=== PATIENT | female | born 1960 | race Caucasian/White ===

== ENCOUNTER → 2017-05-01 | Outpatient (CLI) | payer OTHER ==
[~2017-05-01] MED LIST: MTR600X PO; PEDICHW34 PO
--- NOTE | 2017-05-02 15:54 | MAMMOGRAPHY REPORT ---
BILATERAL DIGITAL SCREENING MAMMOGRAM TOMOSYNTHESIS WITH CAD: 05/01/2017 CLINICAL HISTORY: Routine screening. Patient has no complaints. TECHNIQUE: Breast tomosynthesis in addition to standard 2D mammography was performed. Current study was also evaluated with a Computer Aided Detection (CAD) system. COMPARISON: Comparison is made to exams dated: 07/03/2014 mammogram - [facility] and 12/23/2009 mammogram. BREAST COMPOSITION: The tissue of both breasts is heterogeneously dense, which may obscure small mas ses. FINDINGS: There are stable scattered and loosely grouped benign-appearing round and punctate microcal cifications in the breasts. No suspicious mass, architectural distortion or cluster of microcalcific ations is seen. IMPRESSION: ACR BI-RADS CATEGORY 1: NEGATIVE There is no mammographic evidence of malignancy. A 1 year screening mammogram is recommended. The pa tient will receive written notification of the results. Approximately 10% of breast cancers are not detected with mammography. A negative mammographic report should not delay biopsy if a clinically suggestive mass is present. Sierra Gan M.D. ay/:05/01/2017 15:12:37 Floral Designer Salesperson: Brittni RICHARDS(R)(M), [facility] letter sent: Normal 1/2 BI-RADS Code: ACR BI-RADS Category 1: Negative
== END | disposition home or self-care (01) ==
LOC: C.MAMM 13:42
PROVIDERS: ATTEND Obstetrics & Gynecology
DX: Z12.31 Encounter for screening mammogram for malignant neoplasm of breast (principal)

== ENCOUNTER 2019-08-09 08:57 | Inpatient (IN) ==
[2019-08-09] MEDS ORDERED: ONDANSETRON INJ 2 MG/ML 2 ML VIAL IV STA (09:19)
[2019-08-09] MEDS ORDERED: SODIUM CHLORIDE 0.9% 1000ML 1,000 ML IV ONE (09:19)
--- NOTE | 2019-08-09 09:37 | Emergency Department Note ---
History of Present Illness General Chief Complaint: Abdominal Pain Stated Complaint: LOW ABD PAIN Source: patient Mode of arrival: ambulatory Limitations: no limitations History of Present Illness Provider Complaint: abdominal pain Onset (ago): 3 day(s) Pain Consistency: intermittent Location: RLQ Radiation: none Migration to: no migration Severity: moderate Maximum Pain Intensity: 7 Current Pain Intensity: 7 Quality: + sharp Relieved By: + nothing Exacerbated By: + nothing Associated Symptoms: + nausea and + chills; no vomiting, no diarrhea, no fever, no constipation, no dysuria, no hematochezia, no hematuria, no anorexia, no neck pain, no back pain and no chest pain Treatments prior to arrival: none This 59-year-old female patient presents the emergency department today, ambulatory, complaining of right lower quadrant abdominal pain for the past 3 days. Patient states the pain is been progressively worsening. It is intermittent in nature and sharp when it occurs. She rates the pain 7/10 at present. Pain seems to be worse with laying or sitting, occasionally radiates into the back, but no clear exacerbating or alleviating factors. The patient does report a decreased appetite. Bowel movements have been smaller and less frequent than normal. Last bowel movement was this morning, the patient states it was "like marbles". She did take a bottle of magnesium citrate, thinking that her symptoms are associated with constipation, but this did not seem to make much of a difference. The patient denies any fever, but does report chills. She denies any vomiting. She denies any recent cough, congestion, runny nose, sore throat, chest pain, or dyspnea. Patient does report history of hysterectomy. She does believe she has one ovary, but is unclear which side. She denies any other abdominal surgeries. Home Medications Home Medications Medication Instructions Recorded Confirmed Type acetaminophen [Acetaminophen Extra 1,000 mg PO Q6H PRN 08/09/19 08/09/19 History Strength] ascorbic acid (vitamin C) 1 g PO PM 08/09/19 08/09/19 History magnesium citrate 300 ml PO DAILY PRN 08/09/19 08/09/19 History kutgsxfq-fir-hfofx acid-vit K 1 cap PO PM 08/09/19 08/09/19 History [Multi For Her 50 Plus] omega-3 fatty acids-fish oil 1 cap PO PM 08/09/19 08/09/19 History Allergies Allergy/AdvReac Type Severity Reaction Status Date / Time No Known Allergies Allergy Unverified 08/09/19 10:39 Past Med/Surg History Medical History Mild anemia No pertinent past medical history Surgical History H/O: hysterectomy Social History Feels Safe at Home: Yes Smoking Status: Never smoker Review of Systems A total of 10 systems reviewed and were otherwise negative Physical Exam Vital Signs: Vital Signs - 24 hr 08/09/19 09:05 08/09/19 09:20 08/09/19 10:55 Temperature 37.0 C Temperature Source Oral Pulse Rate 96 H Pulse Rate [Apical ] 93 H Respiratory Rate 20 20 Respiratory Effort / Characteristics Non-Labored Respiratory Depth Normal Normal Blood Pressure 118/76 Blood Pressure [Ri ght Arm] 123/71 Blood Pressure Cynthia n 90 Blood Pressure Cynthia n [Right Arm] 88 Pulse Oximetry 99 97 97 Oxygen Delivery Me thod Room Air Room Air Room Air Sepsis Recent Feve r Within 48 Hours No Sepsis Action Take n by Nursing No Action Required 08/09/19 12:35 08/09/19 14:45 08/09/19 14:54 Temperature Temperature Source Pulse Rate Pulse Rate [Apical ] 82 78 Respiratory Rate 18 18 Respiratory Effort / Characteristics Non-Labored Respiratory Depth Blood Pressure Blood Pressure [Ri ght Arm] 105/68 122/66 Blood Pressure Cynthia n Blood Pressure Cynthia n [Right Arm] 80 84 Pulse Oximetry 97 99 Oxygen Delivery Me thod Room Air Room Air Sepsis Recent Feve r Within 48 Hours Sepsis Action Take n by Nursing Physical Exam: VITALS: Vitals are noted on the nurse's note and reviewed by myself. Vital signs stable. GENERAL: This is a 59-year-old white female, in no acute distress, nondiaphoretic, well-developed well-nourished. SKIN: The skin was without rashes, erythema, edema, or bruising. There is no tenting of the skin. Capillary refill less than 2 seconds. HEAD: Normocephalic atraumatic. NECK: Supple without nuchal rigidity. No lymphadenopathy. No thyromegaly. Cervical spine is nontender. No JVD. HEART: Regular rate and rhythm without murmurs gallops or rubs. LUNGS: Clear to auscultation bilaterally without wheezes, rales or rhonchi. No retractions or accessory muscle use. ABDOMEN: Positive bowel sounds x 4. Normal tympanic percussion. Significant tenderness over McBurney's point in the right lower quadrant. There is referred tenderness on the right with palpation of the left. + Guarding. Abdomen otherwise without masses or organomegaly. Larsen sign negative. No rebound tenderness. MUSCULOSKELETAL: No muscle atrophy, erythema, or edema noted. Full range of motion without joint tenderness in all extremities. No tenderness to palpation. Normal gait. Strength 5/5 throughout. NEURO: Patient was alert and oriented to person place and time. Normal sensation to light and sharp touch. No focal neurological deficits. Course Course The patient was seen and evaluated as above. Patient offered analgesics and declined. An order was placed for continuous cardiac monitoring. The monitor shows a normal sinus rhythm at a rate of 78 bpm. IV access obtained, labs drawn. Patient medicated with IV fluids and Zofran. Labs reviewed by myself. Imaging performed and reviewed by myself and radiologist as noted. I discussed the case with my attending. I discussed the case with the general surgeon on-call, Dr. Jordan. He was in the OR, but agreed to see the patient as soon as he was finished. I discussed the findings with the patient at bedside. Patient medicated with IV Zosyn. She was again offered analgesics and declined. Please see general surgery dictation regarding ongoing management care of this patient. Administered Medications Ioversol (Optiray 320 100ml) 93 ml IV ONCE PRN PRN Reason: Interaction Checking Stop: 08/13/19 10:21 Last Admin: 08/09/19 10:22 Dose: 93 ml Documented by: [id number] Discontinued Medications Sodium Chloride (Nss 1000ml) 1,000 mls @ 999 mls/hr IV .Q1H1M ONE Stop: 08/09/19 10:19 Last Infusion: 08/09/19 10:41 Dose: 0 mls/hr Documented by: [id number] Admin: 08/09/19 09:35 Dose: 999 mls/hr Documented by: [id number] Piperacillin Sod/Tazobactam Sod (Zosyn) 4.5 gm in 120 mls @ 240 mls/hr IV NOW ONE Stop: 08/09/19 13:14 Last Infusion: 08/09/19 14:04 Dose: 0 mls/hr Documented by: [id number] Admin: 08/09/19 13:01 Dose: 240 mls/hr Documented by: [id number] Ondansetron HCl (Zofran) 4 mg IV NOW STA Stop: 08/09/19 09:20 Last Admin: 08/09/19 09:35 Dose: 4 mg Documented by: [id number] Medical Decision Making Differential Diagnosis + peptic ulcer disease, + biliary pathology, + UTI, + obstruction, + mesenteric ischemia, + aortic pathology, + infections, + inflammatory bowel disease, + renal colic, + appendicitis, + calculus of kidney, + constipation, + diverticul itis, + endometriosis, + gastroenteritis, + pancreatitis and + small bowel obstruction Home Medications Current Medication List: was personally reviewed by me Laboratory Data Attestation: I reviewed the patient's lab results. Leukocytosis of 16,000. No significant anemia or thrombocytopenia. Renal, hepatic function and electrolytes without significant abnormality. Lipase 142. Urinalysis positive for 3+ ketones, but no clear evidence of infection. Result diagrams: 08/09/19 09:38 08/09/19 09:38 Lab Results 08/09/19 08/09/19 08/09/19 Range/Units 09:15 09:38 09:38 WBC 16.50 H (4.8-10.8) K/uL RBC 3.72 L (4.2-5.4) M/uL Hgb 11.9 L (12.0-16.0) g/dL Hct 34.2 L (37-47) % MCV 91.9 (80-100) fL MCH 32.0 (25-34) pg MCHC 34.8 (32-36) g/dL RDW Std Deviation 43.9 (36.4-46.3) fL RDW Coeff of Tino 13.0 (11.5-14.5) % Plt Count 208 (130-400) K/uL MPV 10.4 (7.4-10.4) fL Immature Gran % (Auto) 0.2 % Neut % (Auto) 89.4 % Lymph % (Auto) 4.4 % [place] % (Auto) 5.7 % Eos % (Auto) 0.2 % Baso % (Auto) 0.1 % Immature Gran # (Auto) 0.04 H (0.00-0.02) K/uL Neut # (Auto) 14.76 H (1.4-6.5) K/uL Lymph # (Auto) 0.72 L (1.2-3.4) K/uL [place] # (Auto) 0.94 H (0.11-0.59) K/uL Eos # (Auto) 0.03 (0-0.5) K/uL Baso # (Auto) 0.01 (0-0.2) K/uL Sodium 134 L (136-145) mmol/L Potassium 3.9 (3.5-5.1) mmol/L Chloride 104 (98-107) mmol/L Carbon Dioxide 21 (21-32) mmol/L Anion Gap 8.0 (3-11) BUN 12 (7-18) mg/dl Creatinine 0.71 (0.6-1.2) mg/dl Est Cr Clr Drug Dosing 88.2 ml/min Est GFR ( Amer) 108.8 Est GFR (Non-Af Amer) 93.9 BUN/Creatinine Ratio 16.6 (10-20) Glucose 132 H (70-99) mg/dl Calcium 9.4 (8.5-10.1) mg/dl Total Bilirubin 0.7 (0.2-1) mg/dl AST 24 (15-37) U/L ALT 36 (12-78) U/L Alkaline Phosphatase 62 (45-117) U/L Total Protein 7.7 (6.4-8.2) gm/dl Albumin 3.6 (3.4-5.0) gm/dl Globulin 4.1 H (2.5-4.0) gm/dl Albumin/Globulin Ratio 0.9 (0.9-2) Lipase 142 (73-393) U/L Urine Color Dark Yellow Urine Appearance Clear (Clear) Urine pH 5.0 (4.5-7.5) Ur Specific [place] 1.033 H (1.000-1.030) Urine Protein Trace H (Negative) Urine Glucose (UA) Negative (Negative) Urine Ketones 3+ H (Negative) Urine Blood Trace H (Negative) Urine Nitrite Negative (Negative) Urine Bilirubin Negative (Negative) Urine Urobilinogen Negative (Negative) Ur Leukocyte Esterase Negative (Negative) Urine WBC (Auto) 1-5 (0-5) /hpf Urine RBC (Auto) 10-30 H (0-4) /hpf U Hyaline Cast (Auto) 5-10 H (0-5) /lpf U Epithel Cells (Auto) 10-20 H (0-5) /lpf Urine Bacteria (Auto) Negative (Negative) Imaging Data Radiologist's Impression: CT SCAN OF THE ABDOMEN AND PELVIS WITH IV CONTRAST CLINICAL HISTORY: Right lower quadrant abdominal pain. COMPARISON STUDY: No priors. TECHNIQUE: Following the IV administration of 93 cc of Optiray 320, CT scan of the abdomen and pelvis is performed from the lung bases to the proximal femora. Images are reviewed in the axial, sagittal, and coronal planes. IV contrast was administered without complication. Oral contrast was utilized. A dose lowering technique was utilized adhering to the principles of ALARA. CT DOSE: 440.05 mGy.cm FINDINGS: Lung bases: The heart is normal in size and without pericardial effusion. The lung bases are clear. Liver: The contrast-enhanced liver is normal in size, contour, and attenuation. There is no intrahepatic biliary ductal dilatation. The hepatic veins and portal veins are patent. Gallbladder: Unremarkable. Spleen: Normal in size and attenuation. Pancreas: Unremarkable. Adrenal glands: Unremarkable. Kidneys: The contrast enhanced kidneys are normal in size and without hydronephrosis. The kidneys enhance symmetrically. A subcentimeter cortical hypodensity in the left lower pole likely represents a cyst but is too small for definitive catheterization. A 4 mm nonobstructing calculus is seen in the left upper pole. Abdominal vasculature: The abdominal aorta is normal in course and caliber noting scattered foci of atherosclerotic calcification. Bowel: There is no bowel obstruction. Enteric contrast reaches the left colon. There is inflammatory process with phlegmonous change identified in the right lower quadrant. This is within the expected location of the appendix, and a normal appendix is not identified. Findings are highly concerning for acute perforated appendicitis. A calcified appendicolith is seen on image #287. There is mild wall thickening within the adjacent cecum and loops of small bowel, likely reactive. No organized fluid collection is clearly identified. Peritoneum: No intraperitoneal free air is identified. There is trace free fluid in the pelvis. There is a small fat-containing umbilical hernia. Lymphadenopathy: Prominent mesenteric lymph nodes are likely on a reactive basis. No pathologically enlarged lymph nodes identified in the abdomen or pelvis. Pelvic viscera: The bladder is normal as visualized. The uterus is surgically absent. No adnexal lesion is seen. Skeletal structures: No lytic or blastic lesions are seen. IMPRESSION: 1. There is an inflammatory process with phlegmonous change identified in the right lower quadrant as detailed above. Findings are highly concerning for acute perforated appendicitis. 2. No organized/drainable fluid collection is identified at this time. 3. Mild wall thickening within the adjacent cecum and small bowel loops is likely on a reactive basis, as is trace free fluid in the pelvis. 4. Left-sided nephrolithiasis. 5. Additional findings as above. ACT 112: Negative or not required by law. Electronically signed by: Valentino Early M.D. 08/09/2019 12:40 PM Blood Pressure Blood Pressure Findings: Normal blood pressure MDM Narrative This 59-year-old female patient presents the emergency department today for evaluation of right lower quadrant abdominal pain. The pain is been ongoing for the past 3 days. Pain is associated with nausea, chills, and anorexia. No vomiting or fever. Work-up here in the ED is concerning for a leukocytosis of 16,000. No evidence of urinary tract infection. CT imaging consistent with acute appendicitis, likely perforated. I did discuss the case with the general surgeon on-call. He did agree to see and evaluate the patient, but was in the OR at the time of the call. The patient was medicated with IV antibiotics while here in the emergency department. She was ultimately seen by the general surgeon, and will be taken to the OR for further management. Please see surgery dictation regarding ongoing management care of this patient. The chart was completed utilizing [employer] voice recognition software. Grammatical errors, random word insertions, pronoun errors, and incomplete sentences are an occasional consequence of this system due to software costa itations, ambient noise, and hardware issues. Any formal questions or concerns about the content, text, or information contained within the body of this dictation should be directly addressed to the provider for clarification. Impression & Plan Acute appendicitis with perforation and generalized peritonitis Discharge Plan Visit Data Chief Complaint: Abdominal Pain Stated Complaint: LOW ABD PAIN ED Provider: [facility] ED Midlevel Provider: Nuzhat Syed Discharge Problem: Acute appendicitis with perforation and generalized peritonitis Patient Disposition: Still a Patient Discharge Instructions Interventions: ED Discharge Assessment Last Done: 08/09/19 14:54 Forms Stand Alone Forms: My [employer] Prescriptions Prescriptions: No Action ascorbic acid (vitamin C) 1,000 mg Tablet 1 g PO PM RF: 0 acetaminophen [Acetaminophen Extra Strength] 500 mg Tablet 1,000 mg PO Q6H PRN (Reason: Fever Or Pain) RF: 0 magnesium citrate Solution 300 ml PO DAILY PRN (Reason: Constipation) RF: 0 omega-3 fatty acids-fish oil 360-1,200 mg Capsule 1 cap PO PM RF: 0 Multi For Her 50 Plus 400-80 mcg Capsule 1 cap PO PM RF: 0 Referrals Referrals: PCP,NO [Primary Care Provider] -
[2019-08-09 09:47] LABS: Basophils # (auto) 0.01 K/uL (0-0.2); Basophils % (auto) 0.1 %; Eosinophils # (auto) 0.03 K/uL (0-0.5); Eosinophils % (auto) 0.2 %; Hematocrit (blood only) 34.2 % (37-47); Hemoglobin 11.9 g/dL (12.0-16.0); Immature Granulocytes # (auto) 0.04 K/uL (0.00-0.02); Immature Granulocytes % (auto) 0.2 %; Lymphocytes # (auto) 0.72 K/uL (1.2-3.4); Lymphocytes % (auto) 4.4 %; Mean Corpuscular Hgb Conc 34.8 g/dL (32-36); Mean Corpuscular Volume 91.9 fL (80-100); Mean Platelet Volume 10.4 fL (7.4-10.4); Monocytes # (auto) 0.94 K/uL (0.11-0.59); Monocytes % (auto) 5.7 %; Neutrophils # (auto) 14.76 K/uL (1.4-6.5); Neutrophils % (auto) 89.4 %; Platelet Count 208 K/uL (130-400); RDW Standard Deviation 43.9 fL (36.4-46.3); Red Blood Count 3.72 M/uL (4.2-5.4)
[2019-08-09 09:47] LABS: Appearance Urine Clear (Clear); Bacteria Urine Automated Negative (Negative); Bilirubin Urine Negative (Negative); Blood Urine Trace (Negative); Color Urine Dark Yellow; Glucose Urine UA Negative (Negative); Ketones Urine 3+ (Negative); Leukocyte Esterase Urine Negative (Negative); Nitrite Urine Negative (Negative); Protein Urine Trace (Negative); Specific Gravity Urine 1.033 (1.000-1.030); Urobilinogen Urine Negative (Negative)
[2019-08-09 10:03] LABS: Albumin Level 3.6 gm/dl (3.4-5.0); BUN Creatinine Ratio 16.6 (10-20); Calcium 9.4 mg/dl (8.5-10.1); Creatinine Clr Calc Pharmacy 88.2 ml/min; Est GFR (African American) 108.8; Est GFR (Non-African American) 93.9; Potassium 3.9 mmol/L (3.5-5.1)
[2019-08-09 10:06] LABS: Albumin Globulin Ratio 0.9 (0.9-2); Bilirubin,Total 0.7 mg/dl (0.2-1); Globulin 4.1 gm/dl (2.5-4.0); Total Protein 7.7 gm/dl (6.4-8.2)
[2019-08-09] MEDS ORDERED: IOVERSOL 100ml IV PRN (10:22)
--- NOTE | 2019-08-09 12:41 | CT Scan Report ---
CT SCAN OF THE ABDOMEN AND PELVIS WITH IV CONTRAST CLINICAL HISTORY: Right lower quadrant abdominal pain. COMPARISON STUDY: No priors. TECHNIQUE: Following the IV administration of 93 cc of Optiray 320, CT scan of the abdomen and pelvi s is performed from the lung bases to the proximal femora. Images are reviewed in the axial, sagittal , and coronal planes. IV contrast was administered without complication. Oral contrast was utilized. A dose lowering technique was utilized adhering to the principles of ALARA. CT DOSE: 440.05 mGy.cm FINDINGS: Lung bases: The heart is normal in size and without pericardial effusion. The lung bases are clear. Liver: The contrast-enhanced liver is normal in size, contour, and attenuation. There is no intrahepa tic biliary ductal dilatation. The hepatic veins and portal veins are patent. Gallbladder: Unremarkable. Spleen: Normal in size and attenuation. Pancreas: Unremarkable. Adrenal glands: Unremarkable. Kidneys: The contrast enhanced kidneys are normal in size and without hydronephrosis. The kidneys enh ance symmetrically. A subcentimeter cortical hypodensity in the left lower pole likely represents a c yst but is too small for definitive catheterization. A 4 mm nonobstructing calculus is seen in the le ft upper pole. Abdominal vasculature: The abdominal aorta is normal in course and caliber noting scattered foci of a therosclerotic calcification. Bowel: There is no bowel obstruction. Enteric contrast reaches the left colon. There is inflammatory process with phlegmonous change identified in the right lower quadrant. This is within the expected l ocation of the appendix, and a normal appendix is not identified. Findings are highly concerning for acute perforated appendicitis. A calcified appendicolith is seen on image #287. There is mild wall th ickening within the adjacent cecum and loops of small bowel, likely reactive. No organized fluid lloyd ection is clearly identified. Peritoneum: No intraperitoneal free air is identified. There is trace free fluid in the pelvis. There is a small fat-containing umbilical hernia. Lymphadenopathy: Prominent mesenteric lymph nodes are likely on a reactive basis. No pathologically e nlarged lymph nodes identified in the abdomen or pelvis. Pelvic viscera: The bladder is normal as visualized. The uterus is surgically absent. No adnexal lesi on is seen. Skeletal structures: No lytic or blastic lesions are seen. IMPRESSION: 1. There is an inflammatory process with phlegmonous change identified in the right lower quadrant as detailed above. Findings are highly concerning for acute perforated appendicitis. 2. No organized/drainable fluid collection is identified at this time. 3. Mild wall thickening within the adjacent cecum and small bowel loops is likely on a reactive basis , as is trace free fluid in the pelvis. 4. Left-sided nephrolithiasis. 5. Additional findings as above. ACT 112: Negative or not required by law. Electronically signed by: Valentino Early M.D. 08/09/2019 12:40 PM
[2019-08-09] MEDS ORDERED: PIPERACILLIN/TAZOBACTAM 4.5 GM/120 ML BAG IV ONE (12:45)
--- NOTE | 2019-08-09 14:48 | Anesthesiology Consultation ---
Date of Service August 09, 2019 Assessment & Plan (1) Encounter for pre-operative examination: Chart Review Chart Review: Acceptable Risk for Surgery History Height/Weight Height: 5 ft 6 in Weight: 72.7 kg Allergies Allergy/AdvReac Type Severity Reaction Status Date / Time No Known Allergies Allergy Unverified 08/09/19 10:39 Medications Home Medications Medication Instructions Recorded Confirmed Last Taken acetaminophen [Acetaminophen Extra 1,000 mg PO Q6H PRN 08/09/19 08/09/19 08/09/19 02:00 Strength] ascorbic acid (vitamin C) 1 g PO PM 08/09/19 08/09/19 08/08/19 magnesium citrate 300 ml PO DAILY PRN 08/09/19 08/09/19 08/09/19 07:15 pnbxnscu-xrc-hevhs acid-vit K 1 cap PO PM 08/09/19 08/09/19 08/08/19 [Multi For Her 50 Plus] omega-3 fatty acids-fish oil 1 cap PO PM 08/09/19 08/09/19 08/08/19 Active Medications Generic Name Dose Route Start Last Admin Trade Name Freq PRN Reason Stop Dose Admin Ioversol 93 ml 08/09/19 10:22 08/09/19 10:22 Optiray 320 100ml IV 08/13/19 10:21 93 ml ONCE PRN Administration Interaction Checking Past Medical History Medical History (Updated 08/09/19 @ 14:48 by Arvin Meraz MD) Mild anemia No pertinent past medical history Past Surgical History Surgical History H/O: hysterectomy Social History Smoking Status: Never smoker Physical Exam Vital Signs Last Vital Signs Temp 37.0 C 08/09/19 09:05 Pulse 78 08/09/19 14:45 Resp 18 08/09/19 14:45 BP 122/66 08/09/19 14:45 Pulse Ox 99 08/09/19 14:45 Testing Laboratory Results 08/09/19 09:38 08/09/19 09:38 Urine Color Dark Yellow 08/09/19 09:15 Urine Appearance Clear (Clear) 08/09/19 09:15 Urine pH 5.0 (4.5-7.5) 08/09/19 09:15 Ur Specific [place] 1.033 (1.000-1.030) H 08/09/19 09:15 Urine Protein Trace (Negative) H 08/09/19 09:15 Urine Glucose (UA) Negative (Negative) 08/09/19 09:15 Urine Ketones 3+ (Negative) H 08/09/19 09:15 Urine Nitrite Negative (Negative) 08/09/19 09:15 Ur Leukocyte Esterase Negative (Negative) 08/09/19 09:15 Urine WBC (Auto) 1-5 /hpf (0-5) 08/09/19 09:15 Urine RBC (Auto) 10-30 /hpf (0-4) H 08/09/19 09:15 U Hyaline Cast (Auto) 5-10 /lpf (0-5) H 08/09/19 09:15 U Epithel Cells (Auto) 10-20 /lpf (0-5) H 08/09/19 09:15 Urine Bacteria (Auto) Negative (Negative) 08/09/19 09:15
[2019-08-09] MEDS ORDERED: ONDANSETRON INJ 2 MG/ML 2 ML VIAL IV PRN ×2 (14:49→17:24)
[2019-08-09] MEDS ORDERED: PROMETHAZINE HCL 6.25 MG in SODIUM CHLORIDE 0.9% 50 ML IV PRN (14:49)
[2019-08-09] MEDS ORDERED: ATROPINE SULFATE 0.1 MG/ML 10ML SYR IV PRN (14:49)
[2019-08-09] MEDS ORDERED: KETOROLAC 30 MG/ML VIAL IV PRN (14:49)
[2019-08-09] MEDS ORDERED: fentaNYL citrate 100 MCG/2 ML VIAL ONE ×3 (15:05→17:09)
[2019-08-09] MEDS ORDERED: MIDAZOLAM HCL 1 MG/ML 2ML VIAL ONE (15:05)
--- NOTE | 2019-08-09 15:30 | Surgery Consultation ---
Date of Consultation August 09, 2019 Assessment & Plan (1) Acute appendicitis with generalized peritonitis and gangrene: pt is a 59 year-old female who presents to Er with acute abdominal pain, IMP: acute appendicitis with perforation, peritonitis, Plan, I recommend to do laparoscopic appendectomy, possible open , D/W benefits, risks and alternatives of the surgery, the risks - infection, bleeding, abscess, sepsis, multiple organs failure, , pt understood, she agrees with the surgery, I answered all questions, pre-op antibiotic History of Present Illness History of Present Illness History of Present Illness General Chief Complaint: Abdominal Pain Stated Complaint: LOW ABD PAIN Source: patient Mode of arrival: ambulatory Limitations: no limitations History of Present Illness Provider Complaint: abdominal pain Onset (ago): 3 day(s) Pain Consistency: intermittent Location: RLQ Radiation: none Migration to: no migration Severity: moderate Maximum Pain Intensity: 7 Current Pain Intensity: 7 Quality: + sharp Relieved By: + nothing Exacerbated By: + nothing Associated Symptoms: + nausea and + chills; no vomiting, no diarrhea, no fever, no constipation, no dysuria, no hematochezia, no hematuria, no anorexia, no neck pain, no back pain and no chest pain Treatments prior to arrival: none This 59-year-old female patient presents the emergency department today, ambulatory, complaining of right lower quadrant abdominal pain for the past 3 days. Patient states the pain is been progressively worsening. It is intermittent in nature and sharp when it occurs. She rates the pain 7/10 at present. Pain seems to be worse with laying or sitting, occasionally radiates into the back, but no clear exacerbating or alleviating factors. The patient does report a decreased appetite. Bowel movements have been smaller and less frequent than normal. Last bowel movement was this morning, the patient states it was "like marbles". She did take a bottle of magnesium citrate, thinking that her symptoms are associated with constipation, but this did not seem to make much of a difference. The patient denies any fever, but does report chills. She denies any vomiting. She denies any recent cough, congestion, runny nose, sore throat, chest pain, or dyspnea. Patient does report history of hysterectomy. She does believe she has one ovary, but is unclear which side. She denies any other abdominal surgeries. I ( Azam Jordan MD ) got a call for consult acute appendicitis with perforation, I reviewed pt's H/P , labs, CT scan with pt. Home Medications Home Medications Medication Instructions Recorded Confirmed Type PEDIATRIC MULTIPLE VITAMIN W/ 1 tab PO DAILY #0 06/16/14 History (GUMMI BEAR MULTIVITAMIN/M) Ibuprofen 600 mg PO Q6H PRN #30 06/17/14 Rx Allergies Allergy/AdvReac Type Severity Reaction Status Date / Time No Known Allergies Allergy Unverified 06/17/14 22:54 Past Med/Surg History Medical History No pertinent past medical history Surgical History H/O: hysterectomy Social History Feels Safe at Home: Yes Smoking Status: Never smoker Review of Systems A total of 10 systems reviewed and were otherwise negative Physical Exam Vital Signs: Vital Signs - 24 hr 08/09/19 09:05 Temperature 37.0 C Temperature Source Oral Pulse Rate 96 H Respiratory Rate 20 Respiratory Effort / Characteristics Non-Labored Respiratory Depth Normal Blood Pressure 118/76 Blood Pressure Cynthia n 90 Pulse Oximetry 99 Oxygen Delivery Me thod Room Air Sepsis Recent Feve r Within 48 Hours No Sepsis Action Take n by Nursing No Action Required Allergies Allergy/AdvReac Type Severity Reaction Status Date / Time No Known Allergies Allergy Unverified 08/09/19 10:39 Home Medications Home Medications Medication Instructions Recorded Confirmed Type acetaminophen [Acetaminophen Extra 1,000 mg PO Q6H PRN 08/09/19 08/09/19 History Strength] ascorbic acid (vitamin C) 1 g PO PM 08/09/19 08/09/19 History magnesium citrate 300 ml PO DAILY PRN 08/09/19 08/09/19 History [id number] acid-vit K 1 cap PO PM 08/09/19 08/09/19 History [Multi For Her 50 Plus] omega-3 fatty acids-fish oil 1 cap PO PM 08/09/19 08/09/19 History Patient History Medical History (Updated 08/09/19 @ 15:31 by Azam Jordan MD) Mild anemia No pertinent past medical history Surgical History H/O: hysterectomy Social History Feels Safe at Home: Yes Smoking Status: Never smoker Physical Exam Constitutional: WD/WN, vitals as above well developed and well nourished Eyes: PERRL, conjunctivae normal, anicteric sclerae ENMT: external ear and nose normal, oropharynx normal Neck: trachea midline, no thyromegaly Respiratory: normal respiratory effort, lungs clear to auscultation normal respiratory effort Cardiovascular: RRR, no murmur, no edema Rate/Rhythm: regular rate and regular rhythm Gastrointestinal (Abdomen): normal bowel sounds, soft, nontender, no hepatosplenomegaly Percussion/Palpation: + abdomen tender and abdomen soft tenderness at RLQ with rebound pain, BS + Musculoskeletal: no cyanosis or clubbing, extremities motor strength 5/5 Skin: no rashes, warm and dry Neurologic: patellar DTR's 2+ bilat, sensation intact Psychiatric: Orientation: alert and oriented x 3 Results & Data Vital Signs (Past 12 Hours) Vital Signs Temp Pulse Pulse Resp BP BP Pulse Ox 08/09/19 14:45 78 18 122/66 99 08/09/19 12:35 82 18 105/68 97 08/09/19 10:55 93 H 20 123/71 97 08/09/19 09:20 97 08/09/19 09:05 37.0 C 96 H 20 118/76 99 Laboratory Results Abnormal lab results 08/09/19 08/09/19 08/09/19 Range/Units 09:15 09:38 09:38 WBC 16.50 H (4.8-10.8) K/uL RBC 3.72 L (4.2-5.4) M/uL Hgb 11.9 L (12.0-16.0) g/dL Hct 34.2 L (37-47) % Immature Gran # (Auto) 0.04 H (0.00-0.02) K/uL Neut # (Auto) 14.76 H (1.4-6.5) K/uL Lymph # (Auto) 0.72 L (1.2-3.4) K/uL [place] # (Auto) 0.94 H (0.11-0.59) K/uL Sodium 134 L (136-145) mmol/L Glucose 132 H (70-99) mg/dl Globulin 4.1 H (2.5-4.0) gm/dl Ur Specific [place] 1.033 H (1.000-1.030) Urine Protein Trace H (Negative) Urine Ketones 3+ H (Negative) Urine Blood Trace H (Negative) Urine RBC (Auto) 10-30 H (0-4) /hpf U Hyaline Cast (Auto) 5-10 H (0-5) /lpf U Epithel Cells (Auto) 10-20 H (0-5) /lpf Diagnostic Findings CT SCAN OF THE ABDOMEN AND PELVIS WITH IV CONTRAST CLINICAL HISTORY: Right lower quadrant abdominal pain. COMPARISON STUDY: No priors. TECHNIQUE: Following the IV administration of 93 cc of Optiray 320, CT scan of the abdomen and pelvis is performed from the lung bases to the proximal femora. Images are reviewed in the axial, sagittal, and coronal planes. IV contrast was administered without complication. Oral contrast was utilized. A dose lowering technique was utilized adhering to the principles of ALARA. CT DOSE: 440.05 mGy.cm FINDINGS: Lung bases: The heart is normal in size and without pericardial effusion. The lung bases are clear. Liver: The contrast-enhanced liver is normal in size, contour, and attenuation. There is no intrahepatic biliary ductal dilatation. The hepatic veins and portal veins are patent. Gallbladder: Unremarkable. Spleen: Normal in size and attenuation. Pancreas: Unremarkable. Adrenal glands: Unremarkable. Kidneys: The contrast enhanced kidneys are normal in size and without hydrone phrosis. The kidneys enhance symmetrically. A subcentimeter cortical hypodensity in the left lower pole likely represents a cyst but is too small for definitive catheterization. A 4 mm nonobstructing calculus is seen in the left upper pole. Abdominal vasculature: The abdominal aorta is normal in course and caliber noting scattered foci of atherosclerotic calcification. Bowel: There is no bowel obstruction. Enteric contrast reaches the left colon. There is inflammatory process with phlegmonous change identified in the right lower quadrant. This is within the expected location of the appendix, and a normal appendix is not identified. Findings are highly concerning for acute perforated appendicitis. A calcified appendicolith is seen on image #287. There is mild wall thickening within the adjacent cecum and loops of small bowel, likely reactive. No organized fluid collection is clearly identified. Peritoneum: No intraperitoneal free air is identified. There is trace free fluid in the pelvis. There is a small fat-containing umbilical hernia. Lymphadenopathy: Prominent mesenteric lymph nodes are likely on a reactive basis. No pathologically enlarged lymph nodes identified in the abdomen or pelvis. Pelvic viscera: The bladder is normal as visualized. The uterus is surgically absent. No adnexal lesion is seen. Skeletal structures: No lytic or blastic lesions are seen. IMPRESSION: 1. There is an inflammatory process with phlegmonous change identified in the right lower quadrant as detailed above. Findings are highly concerning for acute perforated appendicitis. 2. No organized/drainable fluid collection is identified at this time. 3. Mild wall thickening within the adjacent cecum and small bowel loops is likely on a reactive basis, as is trace free fluid in the pelvis. 4. Left-sided nephrolithiasis. 5. Additional findings as above.
[2019-08-09] MEDS ORDERED: cefOXitin 2,000 MG/60 ML BAG IV STA (15:35)
--- NOTE | 2019-08-09 15:35 | History & Physical Bridge Note ---
Date of Service August 09, 2019 History & Physical Bridge Note I have examined the patient, reviewed the History & Physical and in the interval since the performance of the History & Physical I have noted the following changes of clinical significance: no changes noted
[2019-08-09] MEDS ORDERED: LIDOCAINE HCL 1% 20 ML VIAL ONE (15:53)
[2019-08-09] MEDS ORDERED: BUPIVACAINE 0.5 % 5 MG/1 ML MPF 30ML VIAL ONE (15:53)
[2019-08-09] MEDS ORDERED: BACITRACIN OINT 15 GM TUBE ONE (15:53)
[2019-08-09] MEDS ORDERED: NEOSTIGMINE METHYLSULFATE 5 MG/5 ML SYR ONE (16:21)
[2019-08-09] MEDS ORDERED: ROCURONIUM BROMIDE 10 MG/ML 5 ML VIAL ONE (16:21)
[2019-08-09] MEDS ORDERED: GLYCOPYRROLATE 0.2 MG/ML VIAL ONE (16:21)
[2019-08-09] MEDS ORDERED: METOCLOPRAMIDE HCL INJ 5 MG/ML 2 ML VIAL ONE (16:21)
[2019-08-09] MEDS ORDERED: PROPOFOL IV EMULSION 10 MG/ML 20 ML VIAL IV ONE (16:21)
[2019-08-09] MEDS ORDERED: ONDANSETRON INJ 2 MG/ML 2 ML VIAL ONE (16:21)
[2019-08-09] MEDS ORDERED: SUCCINYLCHOLINE 100MG/5ML SYR IV ONE (16:21)
[2019-08-09] MEDS ORDERED: LIDOCAINE HCL 2% 2 ML VIAL/AMP(20MG/ML) INFIL ONE (16:21)
--- NOTE | 2019-08-09 17:12 | Post Operative Brief Note ---
Immediate Post Op Note v1 Date of Surgery August 09, 2019 Pre & Post Diagnosis Operation Date: 08/09/19 14:50 Pre-Op Diagnosis: Perforated appendix, Post-Op Diagnosis: Perforated appendix, abscess I identified the patient and participated in the time-out.: Yes Procedure Operation Date: 08/09/19 14:50 Actual Procedures p Laparoscopic Appendectomy(Not Applicable) - Azam Jordan MD Surgeon Azam Jordan MD [employer] ophthalmology surgical technician Estimated Blood Loss 10 Findings Consistent with Post-Op Diagnosis Fluids 800ml Specimens appendix Drains Noé-[place]wood Drain Anesthesia Type General Complications none Disposition Accompanied Patient To Recovery: Yes Disposition: Recovery Room Overlapping Procedure I was immediately available: during the entire case.
[2019-08-09] MEDS ORDERED: KETOROLAC 30 MG/ML VIAL ONE (17:50)
[2019-08-09] MEDS ORDERED: HYDROmorphone INJ 1 MG/ML SYRINGE ONE (17:50)
[2019-08-09] MEDS: HYDROmorphone INJ 1 MG/ML SYRINGE IV PRN ×4 (17:52→18:07)
--- NOTE | 2019-08-09 18:11 | Anesthesiology Progress Note ---
Date of Service August 09, 2019 Anesthesia Post Procedure Vital Signs Vital Signs: Temp Pulse Pulse Resp BP BP BP 08/09/19 18:00 74 16 116/64 08/09/19 17:50 82 15 128/58 L 08/09/19 17:43 36.8 C 85 16 131/66 08/09/19 14:45 78 18 122/66 08/09/19 12:35 82 18 105/68 08/09/19 10:55 93 H 20 123/71 08/09/19 09:20 08/09/19 09:05 37.0 C 96 H 20 118/76 Pulse Ox 08/09/19 18:00 100 08/09/19 17:50 100 08/09/19 17:43 100 08/09/19 14:45 99 08/09/19 12:35 97 08/09/19 10:55 97 08/09/19 09:20 97 08/09/19 09:05 99 Pain Intensity Abdomen: Pain Intensity: 7 Transfer of Care Handoff Completed per policy Notes Mental Status: alert / awake / arousable Patient Amnestic to Procedure: Yes Nausea / Vomiting: adequately controlled Pain: adequately controlled Airway Patency, RR, SpO2: stable & adequate BP & HR: stable & adequate Hydration State: stable & adequate Anesthetic Complications: no major complications apparent
[2019-08-09] MEDS ORDERED: PIPERACILL/TAZOBAC CONSULT ACTIVE PRN (18:51)
[2019-08-09] MEDS ORDERED: HYDROmorphone INJ 1 MG/ML SYRINGE IV PRN (18:51)
--- NOTE | 2019-08-09 19:34 | Operative Report (OR) ---
DATE OF OPERATION: 08/09/2019 PREOPERATIVE DIAGNOSIS: Acute appendicitis with perforation. POSTOPERATIVE DIAGNOSES: Acute appendicitis with perforation and abscess and phlegmonous change. OPERATION: Laparoscopic appendectomy. SURGEON: Azam Jordan MD. ANESTHESIA: General. ESTIMATED BLOOD LOSS: About 10 mL FINDINGS: Perforated acute appendicitis with abscess and phlegmonous change. COMPLICATIONS: None. INDICATIONS FOR THE PROCEDURE: This is a 59-year-old female who presented to the ED with acute abdominal pain history. The patient had a CT scan diagnosis of acute appendicitis with perforation. I recommended to do laparoscopic appendectomy, possible open. I did talk to the patient about the benefit, risk, alternate procedure. I indicated the risks may include but not limited such as bleeding, infection, sepsis, abscess, multiple organ failure, even . The patient understands. She signed informed consent and I answered all questions. DETAILS OF PROCEDURE: We brought the patient to the OR, put the patient in the supine position. The patient received SCD on bilateral legs to prevent DVT. Also, patient received 2 g cefoxitin IV for prophylactic antibiotic. The patient received general anesthesia without difficulty. The abdomen was prepped and draped in routine sterile fashion. After timeout, I injected the local anesthesia by using 1% lidocaine mixed with 0.5% Marcaine just above the umbilicus. Then I made a small incision just above umbilicus, opened fascia and opened peritoneum under direct vision, put a Lucho trocar in, connected to CO2 to create pneumoperitoneum. Flow rate was at 6 liter per minute. Pressure not more than 14 mmHg. Once we got a nice pneumoperitoneum, we put the camera in, looked around the abdomen, shows normal finding on the small bowel, large bowel; however, the patient had significant inflammation change on the right lower quadrant. At this moment, we put another two 5 mm trocar on the left lower quadrant area. Once all trocars in, we mobilized the appendix, found the patient had abscess. There was some pus that came out and once we suctioned the pus come out. Then we found the patient had a significant gangrenous appendix with perforation and with significant phlegmonous change and also the distal appendix almost gone with the gangrenous change. At this moment, we mobilized the proximal appendix about 1 cm near the cecum area. Then we used the harmonic to take down appendiceal, rechecked, no active bleeding. Then I used a 45 mm Endo-CATHLEEN staple for transection on the base of the appendix, rechecked the staple line intact. No active bleeding, no leak and then we removed the appendix through the catch bag. Also we found the patient had one large stone and we removed all stones through the catch bag. After we removed the appendix, the stone, we reinserted Lucho trocar in, connected to CO2 to create pneumoperitoneum, again looked around the abdomen and the patient had significant phlegmonous change in the right lower quadrant area and only phlegmonous inflammation change, soft tissue. At this moment, I decided to put a 10 mm TAVON drainage on the right lower quadrant where we fixed the TAVON drainage on the skin by using 0 nylon. Then we removed all trocar under direct vision. No active bleeding from the trocar sites. Pneumoperitoneum was released. I closed the umbilical incision, fascial layer by using 0 Vicryl [id number] x2, closed subcutaneous layer by using 2-0 Vicryl interruptedly, closed skin by using 4-0 Vicryl continuous running, closed another 5 mm trocar site of skin only by using 4-0 Vicryl. Then we put the dressing on. The patient tolerated the procedure well. All instrument, needle and sponge count were correct x2 at the end of case. The patient transferred to recovery room in stable condition. After the procedure, I did talk to the patient's on the phone about the OR finding and procedure we did, he understands. The specimen sent to Pathology. I attest to the content of the Intraoperative Record and any orders documented therein. Any exceptions are noted below. JAMES
[2019-08-09] MEDS: PIPERACILLIN/TAZOBACTAM 3.375 GM in DEXTROSE 5% 100 ML IV SCH (20:10)
[2019-08-09] MEDS: D5W AND 1/2NSS + 20MEQ KCL 20 MEQ/1,000 ML BAG IV SCH (20:14)
[2019-08-09] MEDS: OXYCODONE/ACETAMINOPHEN 5mg/325mg TAB PO PRN (21:44)
[2019-08-10] MEDS: OXYCODONE/ACETAMINOPHEN 5mg/325mg TAB PO PRN ×5 (01:52→23:39)
[2019-08-10] MEDS: PIPERACILLIN/TAZOBACTAM 3.375 GM in DEXTROSE 5% 100 ML IV SCH ×3 (03:58→19:24)
[2019-08-10 05:41] LABS: Basophils # (auto) 0.02 K/uL (0-0.2); Basophils % (auto) 0.2 %; Eosinophils # (auto) 0.05 K/uL (0-0.5); Eosinophils % (auto) 0.5 %; Hematocrit (blood only) 31.3 % (37-47); Hemoglobin 10.6 g/dL (12.0-16.0); Immature Granulocytes # (auto) 0.02 K/uL (0.00-0.02); Immature Granulocytes % (auto) 0.2 %; Lymphocytes # (auto) 0.86 K/uL (1.2-3.4); Lymphocytes % (auto) 8.7 %; Mean Corpuscular Hemoglobin 31.5 pg (25-34); Mean Corpuscular Hgb Conc 33.9 g/dL (32-36); Mean Corpuscular Volume 93.2 fL (80-100); Mean Platelet Volume 10.3 fL (7.4-10.4); Monocytes # (auto) 0.72 K/uL (0.11-0.59); Monocytes % (auto) 7.3 %; Neutrophils # (auto) 8.16 K/uL (1.4-6.5); Neutrophils % (auto) 83.1 %; Platelet Count 182 K/uL (130-400); RDW Coefficient of Variation 13.3 % (11.5-14.5); RDW Standard Deviation 45.2 fL (36.4-46.3); Red Blood Count 3.36 M/uL (4.2-5.4); White Blood Count 9.83 K/uL (4.8-10.8)
[2019-08-10] MEDS: D5W AND 1/2NSS + 20MEQ KCL 20 MEQ/1,000 ML BAG IV SCH ×2 (06:03→15:50)
[2019-08-10 06:08] LABS: Albumin Level 2.5 gm/dl (3.4-5.0); BUN Creatinine Ratio 12.4 (10-20); Calcium 7.7 mg/dl (8.5-10.1); Creatinine Clr Calc Pharmacy 91.2 ml/min; Est GFR (African American) 111.8; Est GFR (Non-African American) 96.4; Potassium 3.6 mmol/L (3.5-5.1)
[2019-08-10 06:12] LABS: Albumin Globulin Ratio 0.8 (0.9-2); Bilirubin,Total 0.8 mg/dl (0.2-1); Globulin 3.3 gm/dl (2.5-4.0); Total Protein 5.8 gm/dl (6.4-8.2)
[2019-08-10] MEDS ORDERED: ACETAMINOPHEN 325 MG TAB PO PRN (12:26)
--- NOTE | 2019-08-10 12:26 | Surgery Progress Note ---
Date of Service S/P laparoscopic appendectomy, TAVON, for perforated appendicitis POD 1 pt feels better, less abdominal pain, no nausea, no fever, TAVON 190ml, cloudy, August 10, 2019 Assessment & Plan (1) Acute appendicitis with generalized peritonitis and gangrene: pt is a 59 year-old female who presents to Er with acute abdominal pain, IMP: acute appendicitis with perforation, peritonitis, Plan, I recommend to do laparoscopic appendectomy, possible open , D/W benefits, risks and alternatives of the surgery, the risks - infection, bleeding, abscess, sepsis, multiple organs failure, , pt understood, she agrees with the surgery, I answered all questions, pre-op antibiotic 08/10/2019 12:25PM POD 1 doing better, clear diet, continue IV antibiotic, culture TAVON fluid repeat labs in am will F/U Physical Exam Constitutional: WD/WN, vitals as above well developed and well nourished Eyes: PERRL, conjunctivae normal, anicteric sclerae ENMT: external ear and nose normal, oropharynx normal Neck: trachea midline, no thyromegaly Respiratory: normal respiratory effort, lungs clear to auscultation normal respiratory effort Cardiovascular: RRR, no murmur, no edema Rate/Rhythm: regular rate and regular rhythm Gastrointestinal (Abdomen): normal bowel sounds, soft, nontender, no hepatosplenomegaly Percussion/Palpation: + abdomen tender and abdomen soft mild tenderness at incision site, no rebound pain, BS + Musculoskeletal: no cyanosis or clubbing, extremities motor strength 5/5 Skin: no rashes, warm and dry Neurologic: patellar DTR's 2+ bilat, sensation intact Psychiatric: Orientation: alert and oriented x 3 Results & Data Vital Signs (Past 12 Hours) Vital Signs Temp Pulse Pulse Resp BP Pulse Ox 08/10/19 11:32 36.6 C 90 18 93/58 L 98 08/10/19 07:24 36.6 C 81 18 100/61 98 08/10/19 03:11 36.8 C 77 16 93/58 L 98 Laboratory Results Abnormal lab results 08/10/19 08/10/19 Range/Units 05:19 05:19 RBC 3.36 L (4.2-5.4) M/uL Hgb 10.6 L (12.0-16.0) g/dL Hct 31.3 L (37-47) % Neut # (Auto) 8.16 H (1.4-6.5) K/uL Lymph # (Auto) 0.86 L (1.2-3.4) K/uL [place] # (Auto) 0.72 H (0.11-0.59) K/uL Chlor[place] 110 H (98-107) mmol/L Glucose 160 H (70-99) mg/dl Calcium 7.7 L D (8.5-10.1) mg/dl AST 14 L (15-37) U/L Total Protein 5.8 L D (6.4-8.2) gm/dl Albumin 2.5 L (3.4-5.0) gm/dl Albumin/Globulin Ratio 0.8 L (0.9-2)
[2019-08-11] MEDS: D5W AND 1/2NSS + 20MEQ KCL 20 MEQ/1,000 ML BAG IV SCH ×2 (01:18→11:07)
[2019-08-11] MEDS: PIPERACILLIN/TAZOBACTAM 3.375 GM in DEXTROSE 5% 100 ML IV SCH ×3 (02:03→19:47)
[2019-08-11] MEDS: OXYCODONE/ACETAMINOPHEN 5mg/325mg TAB PO PRN ×4 (05:45→19:54)
[2019-08-11 07:40] LABS: Basophils # (auto) 0.03 K/uL (0-0.2); Basophils % (auto) 0.4 %; Eosinophils # (auto) 0.18 K/uL (0-0.5); Eosinophils % (auto) 2.5 %; Hematocrit (blood only) 31.2 % (37-47); Hemoglobin 10.5 g/dL (12.0-16.0); Immature Granulocytes # (auto) 0.01 K/uL (0.00-0.02); Immature Granulocytes % (auto) 0.1 %; Lymphocytes # (auto) 1.05 K/uL (1.2-3.4); Lymphocytes % (auto) 14.7 %; Mean Corpuscular Hemoglobin 31.7 pg (25-34); Mean Corpuscular Volume 94.3 fL (80-100); Mean Platelet Volume 9.7 fL (7.4-10.4); Monocytes # (auto) 0.67 K/uL (0.11-0.59); Monocytes % (auto) 9.4 %; Neutrophils # (auto) 5.22 K/uL (1.4-6.5); Neutrophils % (auto) 72.9 %; Platelet Count 213 K/uL (130-400); RDW Coefficient of Variation 13.2 % (11.5-14.5); Red Blood Count 3.31 M/uL (4.2-5.4); White Blood Count 7.16 K/uL (4.8-10.8)
[2019-08-11 07:51] LABS: Mean Corpuscular Hgb Conc 33.7 g/dL (32-36)
[2019-08-11 08:09] LABS: Albumin Globulin Ratio 0.7 (0.9-2); Albumin Level 2.5 gm/dl (3.4-5.0); BUN Creatinine Ratio 4.3 (10-20); Bilirubin,Total 0.6 mg/dl (0.2-1); Calcium 8.1 mg/dl (8.5-10.1); Creatinine Clr Calc Pharmacy 91.2 ml/min; Est GFR (African American) 111.8; Est GFR (Non-African American) 96.4; Globulin 3.5 gm/dl (2.5-4.0); Potassium 3.8 mmol/L (3.5-5.1)
--- NOTE | 2019-08-11 11:11 | Surgery Progress Note ---
Date of Service doing better, still have some abdominal pain, no nausea, no vomiting, tolerated clear diet, WBC normal, no fever, TAVON 190ml clear August 11, 2019 Assessment & Plan (1) Acute appendicitis with generalized peritonitis and gangrene: pt is a 59 year-old female who presents to Er with acute abdominal pain, IMP: acute appendicitis with perforation, peritonitis, Plan, I recommend to do laparoscopic appendectomy, possible open , D/W benefits, risks and alternatives of the surgery, the risks - infection, bleeding, abscess, sepsis, multiple organs failure, , pt understood, she agrees with the surgery, I answered all questions, pre-op antibiotic 08/10/2019 12:25PM POD 1 doing better, clear diet, continue IV antibiotic, culture TAVON fluid repeat labs in am will F/U 08/11/2019 11:09AM doing better, continue IV antibiotic, control pain, regular diet, possible D/C home tomorrow, Physical Exam Constitutional: WD/WN, vitals as above well developed and well nourished Eyes: PERRL, conjunctivae normal, anicteric sclerae ENMT: external ear and nose normal, oropharynx normal Neck: trachea midline, no thyromegaly Respiratory: normal respiratory effort, lungs clear to auscultation normal respiratory effort Cardiovascular: RRR, no murmur, no edema Rate/Rhythm: regular rate and regular rhythm Gastrointestinal (Abdomen): normal bowel sounds, soft, nontender, no hepatosplenomegaly Percussion/Palpation: + abdomen tender and abdomen soft mild tenderness at RLQ, no rebound pain, BS +, all incisions inyact, no redness, Musculoskeletal: no cyanosis or clubbing, extremities motor strength 5/5 Skin: no rashes, warm and dry Neurologic: patellar DTR's 2+ bilat, sensation intact Psychiatric: Orientation: alert and oriented x 3 Results & Data Vital Signs (Past 12 Hours) Vital Signs Temp Pulse Resp BP BP Pulse Ox 08/11/19 08:38 37.1 C 70 18 95/59 L 95 08/10/19 23:34 37.5 C 85 14 104/67 98
[2019-08-11] MEDS: POLYETHYLENE (MIRALAX) 17 GM PACK PO SCH (12:05)
[2019-08-12] MEDS: OXYCODONE/ACETAMINOPHEN 5mg/325mg TAB PO PRN (02:44)
[2019-08-12] MEDS: PIPERACILLIN/TAZOBACTAM 3.375 GM in DEXTROSE 5% 100 ML IV SCH (03:20)
[2019-08-12] MEDS: POLYETHYLENE (MIRALAX) 17 GM PACK PO SCH (08:36)
--- NOTE | 2019-08-12 10:21 | Surgery Progress Note ---
Date of Service August 12, 2019 Assessment & Plan (1) Acute appendicitis with generalized peritonitis and gangrene: POD # 3 s/p laparoscopic appendectomy, perforated appendix with abscess and phlegmonous change -vitals stable, leukocytosis resolved, afebrile - pain moderate but controlled - giovanny drain with serous output, culture + e.coli sensitive to Bactrim Plan: Okay for discharge home today discharge instructions reviewed Rx for Percocet prn pain Rx for Bactrim DS BID for 7 days home with giovanny drain f/u surgical office Sunday Dr. Kyle has seen and examined pt, agrees with above Subjective feeling better tolerated regular diet loose stools, not much stool content no n/v headache today pain controlled but still pretty sore Physical Exam Constitutional: WD/WN, vitals as above no acute distress Respiratory: normal respiratory effort; no respiratory distress Gastrointestinal (Abdomen): Inspection/Auscultation: abdomen not distended Percussion/Palpation: + abdomen tender (RLQ and at incisions, appropriate postop) and abdomen soft; no guarding and abdomen not rigid GIOVANNY drain with serous drainage Skin: no rashes, warm and dry Psychiatric: A+Ox3, euthymic affect Results & Data Vital Signs (Past 12 Hours) Vital Signs Temp Pulse Resp BP BP Pulse Ox 08/12/19 08:19 36.9 C 79 18 117/74 95 08/11/19 22:47 36.5 C 73 16 115/71 100 Laboratory Results Microbiology 08/10/19 12:40 Gram Stain - Final Abdomen Deep Wound Culture - Preliminary Escherichia coli
--- NOTE | 2019-08-14 13:24 | Discharge Summary (DS) ---
ADMITTING DIAGNOSIS: Perforated appendix. POSTOPERATIVE DIAGNOSIS: Perforated appendix. OPERATION: Laparoscopic appendectomy. SURGEON: Azam Jordan MD. DETAILS OF DISCHARGE SUMMARY: This is a 59-year-old female who presented to the ED with acute abdominal pain. The patient had a CT scan diagnosis of perforated appendix and the patient was required to do the laparoscopic appendectomy, possible open. We took the patient to the OR. We did a laparoscopic appendectomy. In the OR, we found the patient had a gangrenous appendix with perforation with abscess. We did appendectomy and TAVON drainage. The patient tolerated the procedure well. After the procedure, the patient was transferred to recovery room and later on transferred to regular floor. The patient is doing fine. PHYSICAL EXAMINATION: VITAL SIGNS: Temperature is 36.9, respiratory rate 18, heart rate is 79, blood pressure 117/74, O2 saturation 95% on room air. GENERAL: The patient is alert, awake, oriented x3. NEUROLOGIC: Intact. HEENT: With normal limitation. NECK: No JVD. CHEST: Bilateral lung sounds clear. HEART: Normal S1, S2. No murmur. ABDOMEN: Soft, no significant tenderness. All dressing intact. TAVON drainage is intact. The TAVON drainage put out about 100 mL. EXTREMITIES: No edema. We discharged the patient on 08/12/2019. We gave the patient postop care instructions and I will follow up the patient in 1 week to remove the TAVON drainage. The patient is still on p.o. antibiotic.
== END 2019-08-12 11:50 | disposition home or self-care (01) | DRG 340 ==
LOC: ED 08:57 → ASU 14:54 → 3N 17:17